=== PATIENT | male | born 1965 | race African-American/Black ===

== ENCOUNTER 2022-11-19 07:15 | Emergency (ER) | payer SELFPAY ==
[2022-11-19] MEDS ORDERED: Sodium Chloride 0.9% 10 ML Syringe FLUSH PRN (07:45)
[2022-11-19] MEDS ORDERED: Sodium Chloride 0.9% 2.5 ML Syringe FLUSH PRN (07:45)
[2022-11-19] MEDS ORDERED: Ketorolac 30 MG/ML SDV IVPUSH ONE (07:54)
[2022-11-19] MEDS ORDERED: Lidocaine 5% 700 MG Patch TRDERM ONE (08:57)
[2022-11-19 09:27] LABS: CARBON DIOXIDE,CO2 31.6 mmol/L (21.0-32.0); POTASSIUM,K 2.6 mmol/L (3.5-5.1)
[2022-11-19] MEDS ORDERED: Potassium Chloride 10% 20 MEQ/15 ML Soln 15 ML UD Cup PO ONE (10:15)
== END 2022-11-19 15:02 | disposition home or self-care (01) ==
LOC: MW.ED 07:15
DX: M54.50 Low back pain, unspecified (principal); R55 Syncope and collapse; I10 Essential (primary) hypertension
CPT/HCPCS: 36415; 70450; 72100; 80053; 81001; 84484; 85027; 85379; 93005; 96374; 99285; A9270; J1885; J3490